=== PATIENT | male | born 1950 | race Caucasian/White ===

== ENCOUNTER 2022-10-27 22:04 | Emergency (ER) | payer MEDICARE, OTHER, SELFPAY ==
[2022-10-27 22:06] VITALS: BP 163/89; PULSE 69; RESP 19; TEMP 36.6; O2SAT 99; BMI 25.7
--- NOTE | 2022-10-27 23:36 | EX.ED.DYSGE1 ---
HPI History of Present Illness Chief Complaint: Allergic Reaction [facility] Home Medications amoxicillin 500 mg capsule 500 mg PO TID 12 days #36 caps 10/28/22 [Rx Last Taken Unknown] Allergy/AdvReac Type Severity Reaction Status Date / Time doxycycline Allergy Intermediate Rash Verified 10/28/22 00:08 EXAM Physical Exam Const Vital Signs: 10/27/22 22:06 Temperature 98 F Temperature Source Temporal Pulse Rate 69 Respiratory Rate 19 H Blood Pressure 163/89 H Blood Pressure Mean 113 Pulse Ox 99 MDM [facility] Narrative Medical decision making narrative: HISTORY OF PRESENT ILLNESS: 72-year-old male here for concern for allergic reaction to doxycycline. States he been on doxycycline for 11 days secondary to tick bite. He states he has redness and of his skin and a flushed feeling with tingling the back of his hands. REVIEW OF SYSTEMS: Pertinent positives: Skin redness, flushed feeling, tingling the back of hand Pertinent negatives: Palpitations, chest pain, focal numbness or weakness. PHYSICAL EXAM: Nursing triage notes reviewed, Vital signs reviewed Constitutional: please see [facility] HENT: MMM, no obvious mucous membrane involvement Eyes: Pupils equal round and reactive to light, Extraocular muscles intact Neck: No stridor, no JVD, full neck ROM Lungs: Clear to auscultation, No wheezing or rales. No increased work of breathing, no conversational dyspnea, no accessory muscle use, no nasal flaring. No respiratory distress noted Heart: Regular rate and rhythm, No murmurs, No rubs and No gallops, 2+ distal pulses (radial, femoral, posterior tibial) in all extremities Abdomen: Soft, there is no tenderness, rigidity, rebound or guarding, no obvious peritoneal signs, no palpable pulsatile abdominal masses, no auscultated abdominal bruit : No CVAT Extremities: No edema Neuro: Alert and oriented x3, neuro exam at baseline, cranial nerves II through XII are intact. No pain with extraocular muscle movement. There is negative test of skew. Normal speech. 5 of 5 strength in upper and lower extremities in flexion extension. Intact sensation to light touch in upper and lower extremity dermatomes. No truncal or extremity ataxia. No dysdiadochokinesia. Normal gait. 2+ reflexes. No meningeal signs. Negative Babinski. NIH of 0 Skin: Confluent erythema noted to the face and bilateral upper extremities. There is no crepitus, bullae, purulent discharge warmth or pain associated MEDICAL DECISION MAKING: Chief Complaint: Concern for adverse reaction to doxycycline External records reviewed: No recent ED visits noted MDM Narrative: The patient was hemodynamically stable, afebrile, nontoxic-appearing. Exam with concern for doxycycline induced dermatitis. No evidence of Kang-Tobias syndrome or toxic epidermal necrolysis. There is no clinical evidence of cellulitis, abscess or necrotizing fasciitis. Will give amoxicillin for ongoing Lyme treatment. The patient and/or family, caregivers express understanding. The patient and/or family, caregivers agrees with the plan. Shared decision making: I will have a discussion with the patient and or visitors regarding risk/benefits of further testing or admission. They will be made aware of of the risk/benefits inherent in this decision they will be given the opportunity to voice understanding. Total critical care time today provided was at least 0 minutes. This excludes separately billable procedures. Critical care time (if documented) is secondary to the patient having high probability of clinically significant/life threatening deterioration in the patient's condition which required my urgent intervention. Discharge Plan Triage Chief Complaint: Allergic Reaction ED Provider: Getachew Pizarro Dx/Rx/DC Orders Clinical Impression: Adverse drug reaction Prescriptions: New amoxicillin 500 mg capsule 500 mg PO TID 12 Days Qty: 36 0RF Primary Care Provider: Robert Matthews Referrals: Robert Matthews MD [[facility]] - Activity Restrictions/Additional Instructions: Thank you for trusting us with your care today! Please take Tylenol (2 pills, 650 mg), ibuprofen (2 pills, 400 mg) every 6 hours as needed for pain and fever control. Please return to the emergency department if your symptoms change or worsen. Specifically develop palpitations, chest pain if you start having fever, vomiting, sore throat, malaise, headache, chills or worsening skin rash. Please follow with your primary care physician for further outpatient evaluation and management. Disposition Disposition: Home, Self Care
== END 2022-10-28 00:37 | disposition home or self-care (01) ==
PROVIDERS: Emergency Provider Emergency Medicine; PCP Internal Medicine; Visit Provider Emergency Medicine
DX: R23.8 Other skin changes (principal); T36.4X5A Adverse effect of tetracyclines, initial encounter; R20.8 Other disturbances of skin sensation
CPT/HCPCS: 99282